=== PATIENT | male | born 1960 | race African-American/Black ===

== ENCOUNTER 2018-11-26 11:05 | Outpatient (CLI) | payer MEDICARE ==
[~2018-11-26 11:05] MED LIST: ACETAMINOPHEN-1 EAC1 ORAL; EPIVIR150 MG ORAL; PERCOCET 5-3251 EACH ORAL; PREDNISONE20 MG ORAL; SOMA350 MG PO
--- NOTE | 2018-11-26 14:39 | Diagnostic Imaging Report ---
Indication: Cervical neck pain with radiculopathy Technique: Sagittal T1 FLAIR PROPELLER, sagittal T2 PROPELLOR, sagittal STIR, axial T2 PROPELLER, axial 3D COSMIC ASPIR images were obtained through the cervical spine Comparison: 07/31/2013 Findings: The bony alignment is normal. Low signal within the bone marrow on all sequences at multiple disc levels indicates subchondral sclerosis from degenerative change. Otherwise unremarkable osseous marrow signal. Intrinsic cord signal is normal. The vertebral body heights are preserved. At C2-3, no significant disc bulge or protrusion or spinal stenosis. The disc spaces preserved. There is mild right and moderate to severe left neural foraminal stenosis which has progressed since the previous study. At C3-4, there is circumferential annular bulge as well as posterior osteophyte complex which results in moderate narrowing of the spinal canal, minimum AP diameter 8 mm. This appears slightly progressive from the previous exam. There is severe left and moderate to severe right neural foraminal stenosis, which appears similar to the prior study. There is mild degenerative disc narrowing. At C4-5, there is a right posterior osteophyte which may impinge upon the lateral recess this has progressed since the prior study. No definite central canal stenosis. There is mild left and moderate right neural foraminal stenosis.. There is moderate degenerative disc narrowing. At C5-6, posterior or disc bulge/osteophyte complex results in mild narrowing the spinal canal. There is moderate to severe right and severe left neural foraminal narrowing this appears worse than on the previous exam. There is moderate narrowing of the disc space. Disc space narrowing has progressed since previous study. At C6-7 there is mild circumferential annular bulge. Osteophytes may impinge upon the left lateral recess. There is apparent near complete obliteration of the left neural foramen. There is moderate narrowing of the right neural foramen. There is moderate narrowing of the disc space, progressive since previous exam. At C7-T1, no significant disc bulge or protrusion, spinal stenosis, or neural foraminal stenosis. Included extra spinal soft tissues are unremarkable. Impression: Multilevel degenerative changes, as detailed on a level by level basis above. This has progressed since prior study of 07/31/2013
== END 2018-11-26 13:05 | disposition home or self-care (01) ==
LOC: MRI 11:05
DX: M54.12 Radiculopathy, cervical region (principal); M54.2 Cervicalgia
CPT/HCPCS: 72141